=== PATIENT | female | born 1950 | race Caucasian/White ===

== ENCOUNTER 2020-06-16 07:48 | Outpatient (CLI) | payer OTHER | END 2020-06-16 07:49 | disposition home or self-care (01) | LOC: CSHMAMMO 07:48 | PROVIDERS: ATTEND Obstetrics & Gynecology | DX: Z12.31 Encounter for screening mammogram for malignant neoplasm of breast (principal) | CPT/HCPCS: 77063; 77067 ==

== ENCOUNTER 2022-04-26 06:06 | Day surgery (SDC) | payer BC ==
[2022-04-24 13:11] VITALS: BMI 25.5
== END 2022-04-26 08:30 | disposition home or self-care (01) ==
LOC: CSHSDC 06:06
PROVIDERS: ATTEND Internal Medicine Gastroenterology
PROC: 0DJ08ZZ Inspection of Upper Intestinal Tract, Via Natural or Artificial Opening Endoscopic (ICD-10-PCS; principal; 2022-04-26)
DX: K31.819 Angiodysplasia of stomach and duodenum without bleeding (principal); K21.9 Gastro-esophageal reflux disease without esophagitis; K44.9 Diaphragmatic hernia without obstruction or gangrene; D50.9 Iron deficiency anemia, unspecified; I25.10 Atherosclerotic heart disease of native coronary artery without angina pectoris; F41.9 Anxiety disorder, unspecified; F32.A Depression, unspecified; E07.9 Disorder of thyroid, unspecified; Z87.891 Personal history of nicotine dependence; Z79.899 Other long term (current) drug therapy; Z88.2 Allergy status to sulfonamides; Z88.8 Allergy status to other drugs, medicaments and biological substances

== ENCOUNTER 2022-05-29 08:13 | Outpatient (CLI) | payer BC | END 2022-05-29 08:14 | disposition home or self-care (01) | LOC: CSHMAMMO 08:13 | PROVIDERS: ATTEND Obstetrics & Gynecology | DX: Z12.31 Encounter for screening mammogram for malignant neoplasm of breast (principal) | CPT/HCPCS: 77063; 77067 ==

== ENCOUNTER 2022-07-27 11:31 | Outpatient (CLI) | payer BC | END 2022-07-27 11:32 | disposition home or self-care (01) | LOC: CSHMAMMO 11:31 | PROVIDERS: ATTEND Obstetrics & Gynecology | DX: Z13.820 Encounter for screening for osteoporosis (principal); M85.851 Other specified disorders of bone density and structure, right thigh; M85.852 Other specified disorders of bone density and structure, left thigh; Z78.0 Asymptomatic menopausal state | CPT/HCPCS: 77080 ==

== ENCOUNTER 2023-08-31 12:08 | Emergency (ER) | payer BC ==
[2023-08-31] MEDS ORDERED: Fluorescein Opthalmic Strip ONE (12:33)
[2023-08-31] MEDS ORDERED: Tetracaine 0.5% PF 4 ML BOT ONE (12:33)
== END 2023-08-31 13:00 | disposition home or self-care (01) ==
LOC: CSHERS 12:08
DX: H16.142 Punctate keratitis, left eye (principal)
CPT/HCPCS: 99283

== ENCOUNTER 2023-10-12 10:18 | Outpatient (CLI) | payer BC | END 2023-10-12 10:19 | disposition home or self-care (01) | LOC: CSHCT 10:18 | PROVIDERS: ATTEND Orthopaedic Surgery | DX: Z01.818 Encounter for other preprocedural examination (principal); M17.12 Unilateral primary osteoarthritis, left knee; N83.8 Other noninflammatory disorders of ovary, fallopian tube and broad ligament ==